=== PATIENT | female | born 1955 | race Caucasian/White ===

== ENCOUNTER → 2017-05-09 | Outpatient (REF) | payer OTHER | LOC: M SFHCWAGY 11:45 | PROVIDERS: ATTEND Nurse Practitioner Family | DX: Z12.4 Encounter for screening for malignant neoplasm of cervix (principal); Z12.31 Encounter for screening mammogram for malignant neoplasm of breast ==

== ENCOUNTER → 2017-05-09 | Outpatient (CLI) | payer BC ==
--- NOTE | 2017-05-09 13:02 | REPMRS ---
Patient History The patient states she had a clinical breast exam in 04/2017. Patient is postmenopausal and had first child at age 30. Family history of breast cancer in 2 maternal aunts at age 50 or over. Digital Woman Screen Mammo: May 09, 2017 - Exam #: [id number] Bilateral CC and MLO view(s) were taken. Technologist: Rosalie Giles, Technologist Prior study comparison: September 02, 2014, digital woman screen mammo performed at [facility]. December 01, 2011, digital woman screen mammo performed at [facility] to [facility]. FINDINGS: The breast tissue is heterogeneously dense. This may lower the sensitivity of mammography. There has been no change in the appearance of the mammogram from the prior studies. There is a moderate amount of residual fibroglandular tissue which is fairly symmetric. There is no interval development of dominant mass, areas of architectural distortion, or clustered microcalcification typical of malignancy. ASSESSMENT: BI-RADS/ACR category 1 mammogram. Negative. Recommendation Routine screening mammogram in 1 year (for women over age 40). This mammogram was interpreted with the aid of an FDA-approved computer-aided dectection system. Electronically Signed By: Vince Carney MD 05/09/17 [id number]
== END ==
LOC: M WHC 11:15
PROVIDERS: ATTEND Nurse Practitioner Family
DX: Z12.31 Encounter for screening mammogram for malignant neoplasm of breast (principal); Z78.0 Asymptomatic menopausal state; R92.8 Other abnormal and inconclusive findings on diagnostic imaging of breast

== ENCOUNTER → 2017-05-23 | Outpatient (REF) | payer OTHER | LOC: M SFHCWAGY 08:11 | PROVIDERS: ATTEND Nurse Practitioner Women's Health | DX: N87.0 Mild cervical dysplasia (principal); R87.810 Cervical high risk human papillomavirus (HPV) DNA test positive ==

== ENCOUNTER → 2018-10-29 | Outpatient (CLI) | payer MEDICARE, BC ==
--- NOTE | 2018-10-29 12:28 | REPMRS ---
Patient History The patient states she had a clinical breast exam in 10/2018. Family history of breast cancer at age 50 or over in maternal aunt, breast cancer at age 50 or over in maternal aunt. Digital Woman Screen Mammo: October 29, 2018 - Exam #: [id number] Bilateral CC and MLO view(s) were taken. Technologist: Cyndy Shannon, Technologist Prior study comparison: May 09, 2017, digital woman screen mammo performed at [facility]. September 02, 2014, digital woman screen mammo performed at [facility]. December 01, 2011, digital woman screen mammo performed at [facility]. FINDINGS: The breast tissue is heterogeneously dense. This may lower the sensitivity of mammography. There is a moderate amount of heterogeneously dense fibroglandular tissue which is fairly symmetric. There is no interval development of dominant mass, architectural distortion, or clustered microcalcification typical of malignancy. There has been no change in the appearance of the mammogram from the prior studies. 3-D tomosynthesis shows no additional findings. Assessment: BI-RADS/ACR category 1 mammogram. Negative Mammogram. Recommendation Routine screening mammogram of both breasts in 1 year (for women over age 40). This patient's Lifetime Breast Cancer RIsk is estimated at 12.8 %. This mammogram was interpreted with the aid of an FDA-approved computer-aided dectection system. Electronically Signed By: Sascha Dodd MD 10/29/18 [id number]
== END ==
LOC: M WHC 11:08
PROVIDERS: ATTEND Nurse Practitioner Family
DX: Z01.419 Encounter for gynecological examination (general) (routine) without abnormal findings (principal); Z12.31 Encounter for screening mammogram for malignant neoplasm of breast; Z12.12 Encounter for screening for malignant neoplasm of rectum
CPT/HCPCS: 77063; 77067; 82270; 87624; G0101; G0123

== ENCOUNTER → 2018-10-29 | Outpatient (REF) | payer MEDICARE, OTHER | LOC: M SFHCWAGY 11:38 | PROVIDERS: ATTEND Nurse Practitioner Family | DX: Z12.4 Encounter for screening for malignant neoplasm of cervix (principal); R87.610 Atypical squamous cells of undetermined significance on cytologic smear of cervix (ASC-US); N95.8 Other specified menopausal and perimenopausal disorders | CPT/HCPCS: 87624; G0123 ==

== ENCOUNTER → 2018-11-26 | Outpatient (REF) | payer MEDICARE, OTHER | LOC: M SFHCWAGY 13:41 | PROVIDERS: ATTEND Nurse Practitioner Women's Health | DX: R87.810 Cervical high risk human papillomavirus (HPV) DNA test positive (principal); N87.1 Moderate cervical dysplasia ==

== ENCOUNTER → 2019-05-08 | Outpatient (REF) | payer MEDICARE, OTHER | LOC: M SFHCWAGY 12:02 | PROVIDERS: ATTEND Nurse Practitioner Family | DX: Z98.890 Other specified postprocedural states (principal); N76.0 Acute vaginitis | CPT/HCPCS: G0123; G0463 ==

== ENCOUNTER → 2019-12-12 | Outpatient (REF) | payer MEDICARE, OTHER | LOC: M SFHCWAGY 18:04 | PROVIDERS: ATTEND Nurse Practitioner Family | DX: Z12.4 Encounter for screening for malignant neoplasm of cervix (principal) ==

== ENCOUNTER → 2019-12-12 | Outpatient (CLI) | payer MEDICARE, OTHER ==
--- NOTE | 2019-12-12 15:46 | REPMRS ---
Patient History The patient states she had a clinical breast exam in November 2019. Family history of breast cancer at age 50 or over in maternal aunt, breast cancer at age 50 or over in maternal aunt. 3D TOMOSYNTHESIS WAS PERFORMED. The Flash Miranda lifetime risk for breast cancer is 12.2%. KATI Michaud. Digital Woman Screen Mammo: December 12, 2019 - Exam #: [id number] Bilateral CC and MLO view(s) were taken. Technologist: Alicja Soriano, Technologist Prior study comparison: October 29, 2018, bilateral digital woman screen mammo performed at [facility]. May 09, 2017, digital woman screen mammo performed at [facility]. FINDINGS: The breast tissue is heterogeneously dense. This may lower the sensitivity of mammography. There has been no change in the appearance of the mammogram from the prior studies. There is a moderate amount of residual fibroglandular tissue which is fairly symmetric. There is no interval development of dominant mass, areas of architectural distortion, or clustered microcalcification typical of malignancy. Assessment: BI-RADS/ACR category 1 mammogram. Negative Mammogram. Recommendation Routine screening mammogram in 1 year (for women over age 40). This mammogram was interpreted with the aid of an FDA-approved computer-aided dectection system. Electronically Signed By: Vince Carney MD 12/12/19 [id number]
== END ==
LOC: M WHC 14:06
PROVIDERS: ATTEND Nurse Practitioner Family
DX: Z12.31 Encounter for screening mammogram for malignant neoplasm of breast (principal)

== ENCOUNTER → 2020-12-16 | Outpatient (REF) | payer MEDICARE, OTHER | LOC: M SFHCWAGY 18:55 | PROVIDERS: ATTEND Nurse Practitioner Women's Health | DX: Z12.72 Encounter for screening for malignant neoplasm of vagina (principal); R87.628 Other abnormal cytological findings on specimens from vagina ==

== ENCOUNTER → 2020-12-16 | Outpatient (CLI) | payer MEDICARE, OTHER ==
--- NOTE | 2020-12-16 12:36 | REPMRS ---
Patient History The patient states she had a clinical breast exam in November 2020. Family history of breast cancer at age 50 or over in maternal aunt, breast cancer at age 50 or over in maternal aunt. Patient states no breast complaints today. Patient has signed MRS History Sheet. Digital Woman Screen Mammo: December 16, 2020 - Exam #: [id number] Bilateral CC and MLO view(s) were taken. Technologist: Cyndy Shannon, Technologist Prior study comparison: December 12, 2019, bilateral digital woman screen mammo performed at [facility]. October 29, 2018, bilateral digital woman screen mammo performed at [facility]. FINDINGS: There are scattered fibroglandular densities. Screening. Digital screening (2D) mammography was performed bilaterally in the CC and MLO projections. Additionally, breast tomosynthesis (3D mammography) was performed bilaterally in the CC and MLO projections. Todays exam was compared to the prior exam/exams. By history, the patient has no complaints of a palpable breast abnormality or other significant breast complaints. The breasts are unchanged in size and shape. There are no rufino-soft tissue densities or spiculated masses. There is no internal architectural distortion. Once again, stable benign appearing calcifications are seen.There are no suspicious rufino-calcific clusters. Skin thickening or nipple retraction is not present. IMPRESSION: BI-RADS Category 2- Benign Findings. There is no evidence of malignant alteration of the breasts. Followup examination recommended in one year. The Volpara volumetric breast density category is B, there are scattered areas of fibroglandular densities. This mammogram [facility],an FDA approved computer aided detection system for mammography. The lifetime Tyrer-Cuzick score is 11.5 % Negative x-ray reports should not delay surgical consultation if a dominant or clinically suspicious mass is present. Not all breast cancers can be identified by mammography. Therefore, we recommend that you continue to perform regular breast self-examination and physical examination and then promptly contact your physician of any concerns or changes. Adenosis and dense breasts may obscure an underlying neoplasm. Assessment: BI-RADS/ACR category 2 mammogram. Benign Findings. Recommendation Routine screening mammogram of both breasts in 1 year. Electronically Signed By: Jassi Goyal DO 12/16/20 [id number]
== END ==
LOC: M WHC 11:20
PROVIDERS: ATTEND Nurse Practitioner Women's Health
DX: Z12.31 Encounter for screening mammogram for malignant neoplasm of breast (principal); R92.1 Mammographic calcification found on diagnostic imaging of breast; Z12.72 Encounter for screening for malignant neoplasm of vagina; R87.628 Other abnormal cytological findings on specimens from vagina
CPT/HCPCS: 77063; 77067; 87624; G0101; G0123

== ENCOUNTER 2021-11-05 09:34 | Emergency (ER) | payer MEDICARE, BC, OTHER ==
[~2021-11-05] VITALS: Ht 160 cm; Wt 75.0 kg
[2021-11-05] MEDS ORDERED: ONDANSETRON 4MG TAB PO ONE (12:10)
[2021-11-05] MEDS ORDERED: ONDANSETRON 4MG ORAL DISINTEGRATING TAB PO ONE (12:15)
[2021-11-05 12:18] VITALS: BP 107/60
[2021-11-05] MEDS ORDERED: KETOROLAC 60MG 2ML VIAL IM ONE (12:30)
== END 2021-11-05 13:01 | disposition home or self-care (01) ==
LOC: M ED 09:34
DX: S42.215A Unspecified nondisplaced fracture of surgical neck of left humerus, initial encounter for closed fracture (principal); W01.0XXA Fall on same level from slipping, tripping and stumbling without subsequent striking against object, initial encounter; Y92.009 Unspecified place in unspecified non-institutional (private) residence as the place of occurrence of the external cause; Y93.H2 Activity, gardening and landscaping; Y99.9 Unspecified external cause status; Z88.1 Allergy status to other antibiotic agents; Z88.2 Allergy status to sulfonamides; Z88.0 Allergy status to penicillin; Z88.8 Allergy status to other drugs, medicaments and biological substances
CPT/HCPCS: 73030; 73060; 96372; 99284; J1885

== ENCOUNTER → 2022-04-11 | Outpatient (CLI) | payer MEDICARE, BC, OTHER | LOC: M WHC 13:20 | PROVIDERS: ATTEND Obstetrics & Gynecology | DX: Z12.31 Encounter for screening mammogram for malignant neoplasm of breast (principal) ==

== ENCOUNTER → 2023-02-27 | Outpatient (CLI) | payer MEDICARE, BC, OTHER | LOC: M PLAIMG 12:36 | PROVIDERS: ATTEND Physician Assistant | DX: M25.571 Pain in right ankle and joints of right foot (principal) ==

== ENCOUNTER → 2023-04-13 | Outpatient (CLI) | payer MEDICARE, BC, OTHER | LOC: M WHC 12:47 | PROVIDERS: ATTEND Obstetrics & Gynecology | DX: Z12.31 Encounter for screening mammogram for malignant neoplasm of breast (principal) ==

== ENCOUNTER → 2025-03-13 | Outpatient (CLI) | payer MEDICARE, BC | LOC: M WHC 13:38 | PROVIDERS: ATTEND Obstetrics & Gynecology | DX: Z12.31 Encounter for screening mammogram for malignant neoplasm of breast (principal); R92.333 Mammographic heterogeneous density, bilateral breasts ==